=== PATIENT | male | born 1950 | race Caucasian/White ===

== ENCOUNTER 2016-12-16 00:02 | Emergency (ER) | payer OTHER ==
[~2016-12-16] VITALS: Ht 182.9 cm; Wt 110.7 kg
[2016-12-16 00:02] VITALS: BP_SYST 149
[2016-12-16] MEDS ORDERED: LACT10SO66 PO (00:34)
[2016-12-16] MEDS ORDERED: MILK200C4 PO (00:34)
[2016-12-16] MEDS ORDERED: RANI-362 PO (00:34)
[2016-12-16] MEDS ORDERED: QUET200T PO (00:34)
[2016-12-16] MEDS ORDERED: OXYC20TA55 PO (00:34)
[2016-12-16] MEDS ORDERED: VITA1CAP PO (00:34)
[2016-12-16] MEDS ORDERED: GABA-531 PO (00:34)
[2016-12-16] MEDS ORDERED: CHOL500037 PO (00:34)
[2016-12-16] MEDS ORDERED: ALPH200C2 PO (00:34)
[2016-12-16] MEDS ORDERED: TAMS0.4C96 PO (00:34)
[2016-12-16] MEDS ORDERED: L.RH1CAP PO (00:34)
[2016-12-16] MEDS ORDERED: LORazepam 2 MG/ML VIAL (FOR ER USE) IVP ONE (01:00)
[2016-12-16] MEDS ORDERED: NACL 0.9% 1,000 ML IV ONE (01:00)
[2016-12-16] MEDS ORDERED: FUROSEMIDE 40 MG/4 ML VIAL IVP ONE (01:00)
[2016-12-16 01:12] LABS: INR 0.9 (0.80-1.20); PROTHROMBIN TIME 10.3 SECS (9.5-12.5)
[2016-12-16 01:18] LABS: BASOPHILS # (AUTO) 0.1 K/uL (0.0-0.2); BASOPHILS % (AUTO) 0.9 % (0.0-2.0); EOSINOPHILS # (AUTO) 0.1 K/uL (0.0-0.4); EOSINOPHILS % (AUTO) 1.2 % (0.0-4.0); HEMATOCRIT 40.5 % (36-54); HEMOGLOBIN 13.7 g/dL (14.0-18.0); LYMPHOCYTES # (AUTO) 1.4 K/uL (1.0-5.5); LYMPHOCYTES % (AUTO) 24.1 % (20.5-51.5); MEAN CORPUSCULAR HEMOGLOBIN 33 pg (27-31); MEAN CORPUSCULAR HGB CONC 34 % (32-36); MEAN CORPUSCULAR VOLUME 98 fL (79.0-98.0); MONOCYTES # (AUTO) 0.8 K/uL (0.0-1.0); NEUTROPHILS # (AUTO) 3.5 K/uL (1.8-7.7); NEUTROPHILS % (AUTO) 59.8 % (40.0-70.0); PLATELET COUNT (AUTO) 242 K/uL (130-430); RED BLOOD CELL COUNT(AUTO) 4.12 MIL/uL (4.2-6.2); RED CELL DISTRIBUTION WIDTH 15.9 % (9.0-15.0); WHITE BLOOD COUNT (AUTO) 5.9 K/uL (4.8-10.8)
[2016-12-16 01:28] LABS: BILIRUBIN,URINE NEGATIVE (NEGATIVE); BLOOD, URINE NEGATIVE (NEGATIVE); CLARITY/URINE CLEAR (CLEAR); COLOR,URINE YELLOW (YELLOW); GLUCOSE,URINE NEGATIVE (NEGATIVE); KETONES,URINE NEGATIVE (NEGATIVE); LEUKOCYTE ESTERASE ,URINE 1+ (NEGATIVE); NITRITE, URINE NEGATIVE (NEGATIVE); PROTEIN URINE NEGATIVE (NEGATIVE); UROBILINOGEN,URINE 0.2 (0.2-1.0)
[2016-12-16 01:29] LABS: CALCIUM 8.6 mg/dL (8.4-11.0); CREATININE 0.79 mg/dL (0.55-1.30); POTASSIUM 3.7 mmol/L (3.5-5.1)
[2016-12-16 01:34] LABS: ALBUMIN 3.6 g/dL (3.4-4.8); TOTAL BILIRUBIN 0.6 mg/dL (0.0-1.0); TOTAL PROTEIN, SERUM 8.1 g/dL (6.4-8.3)
[2016-12-16 01:40] LABS: BACTERIA,URINE FEW /HPF (None Seen); MUCUS,URINE None Seen /LPF (None Seen); RBC,URINE 0-3 /HPF (0-3)
[2016-12-16 02:21] LABS: BLOOD GAS PH 7.469 (7.350-7.450)
[2016-12-16 02:22] LABS: ABG TOTAL HEMOGLOBIN 14.8 G/dL (12.0-18.0); BLOOD GAS BASE EXCESS 2.3 mmol/L (-3.0-3.0); BLOOD GAS COHb% 3.5 % (0.5-1.5); BLOOD O2Hb% 91.1 % (94.0-97.0)
[2016-12-16] MEDS ORDERED: cloNIDine HCL 0.1 MG TABLET PO ONE (02:30)
[2016-12-16 03:53] VITALS: BP_SYST 142
== END 2016-12-16 03:53 | disposition home or self-care (01) ==
LOC: SED 00:02
DX: J44.1 Chronic obstructive pulmonary disease with (acute) exacerbation (principal); R60.0 Localized edema; K21.9 Gastro-esophageal reflux disease without esophagitis; I10 Essential (primary) hypertension; Z79.899 Other long term (current) drug therapy
CPT/HCPCS: 36415; 36600; 71010; 80053; 81000; 82140; 82803; 83605; 83880; 84484; 85025; 85610; 85730; 87040; 87086; 93005; 96361; 96374; 96375; 99285; J1940; J2060; J7030; 87186-TC